=== PATIENT | male | born 1975 ===

== ENCOUNTER 2020-10-12 20:15 | Emergency (ER) | payer SELFPAY ==
[~2020-10-12] VITALS: Ht 180.3 cm; Wt 105.2 kg
[2020-10-12 20:16] VITALS: BP 135/74
[2020-10-12] MEDS ORDERED: ALLE180T33 PO (20:22)
== END 2020-10-12 21:19 | disposition left against medical advice (07) ==
LOC: M ED 20:15
DX: Z53.21 Procedure and treatment not carried out due to patient leaving prior to being seen by health care provider (principal)